=== PATIENT | male | born 1965 | race Caucasian/White ===

== ENCOUNTER 2016-12-13 15:41 | Emergency (ER) | payer BC ==
[2016-12-13] MEDS ORDERED: Morphine 2 MG/ML Syringe IVPUSH ONE (16:22)
[2016-12-13] MEDS ORDERED: Ketorolac 30 MG/ML SDV IVPUSH ONE (16:22)
[2016-12-13] MEDS ORDERED: Ondansetron 4 MG/2 ML SDV IVPUSH ONE (16:22)
--- NOTE | 2016-12-13 16:50 | EDM.PDOC ---
ED HPI LOWER BACK PAIN/INJURY - General Chief Complaint: Flank Pain Stated Complaint: LOWER BACK PAIN Time Seen by Provider: 12/13/16 16:15 Source of Information: Reports: Patient History Limitations: Reports: No limitations - History of Present Illness INITIAL COMMENTS - FREE TEXT/NARRATIVE: HISTORY AND PHYSICAL: History of present illness: [Patient comes to the emergency department complaining of left flank pain. Pain began suddenly at 3 AM this morning and has gradually worsened throughout the day. Denies hematuria, urinary frequency, and burning with urination. No penile discharge. He denies fever and chills. He has had no chest pain, shortness of breath, and difficulty breathing. One episode of vomiting at noon today which he attributes to taking all his medications on an empty stomach. Rates pain at 10 out of 10. Radiation into his left testicle. No right-sided back pain. He took 2 of his 's tramadol earlier today which provided minimal relief of symptoms. Patient notices particles in his urine after leaving UA while in the ER. Patient's primary care provider is in [place] at [facility].] Review of systems: As per history of present illness and below otherwise all systems reviewed and negative. Past medical history: As per history of present illness and as reviewed below otherwise noncontributory. Surgical history: As per history of present illness and as reviewed below otherwise noncontributory. Social history: No reported history of drug or alcohol abuse. Family history: As per history of present illness and as reviewed below otherwise noncontributory. Physical exam: General: Well-developed well-nourished male is in no acute distress, but appears uncomfortable. Rocks back and forth while sitting on exam table. HEENT: Atraumatic, normocephalic. negative for conjunctival pallor or scleral icterus. mucous membranes moist, throat clear. Lungs: Clear to auscultation, breath sounds equal bilaterally, chest nontender. Heart: S1S2, regular rate and rhythm. negative for clicks, rubs, or JVD. Abdomen: Normoactive bowel sounds throughout. Soft, nondistended, nontender. No CVA tenderness bilaterally. Identifies the area of pain as being to his left low back below his waist line. Negative for masses or hepatosplenomegaly. No guarding or rebound. Pelvis: Stable nontender. Genitourinary: Deferred. Rectal: Deferred. Extremities: Atraumatic, is ambulatory without deficit. Neurovascular unremarkable. Neuro: Awake, alert, oriented. Cranial nerves II through XII unremarkable. Motor and sensory unremarkable throughout. Exam nonfocal. Diagnostics: [UA w/ micro, CT abd and pelvis w/o contrast] Therapeutics: [morphine 2mg IV, ketoroloac 30mg IV, zofran 4mg IV] Impression: Ureteral colic Microscopic hematuria ] Plan: [Pain improves following IV medications. Urine is slightly cloudy, positive for nitrites and a small of blood. We'll cover for possible UTI with Macrobid. Colic may be due to a passed kidney stone. Incidental findings found on CT are reviewed with patient of #1 diverticulosis, #2 right renal cyst, #3 umbilical hernia, #4 small left inguinal hernia. He is urged to review this with his PCP. Offered patient hospitalization for continued observation. He declines stating that he is going to be hospitalized he will drive to [place]. He is given Rx's for Hydrocodone 5mg (#10) si po q 6 hours prn pain 0 RF's; ketorolac 10mg (#20) si po q 6 hours 0 RF's, Macrobid #14 one twice a day no refills. Urged close followup with PCP and to return to ER as needed. All of his questions are answered and concerns are addressed.] Definitive disposition and diagnosis as appropriate pending reevaluation and review of above. - Related Data Allergies/ADRs: Allergies Allergy/AdvReac Type Severity Reaction Status Date / Time No Known Allergies Allergy Verified 12/13/16 15:55 Home Meds: Home Meds Empagliflozin [Jardiance] 25 mg PO DAILY 12/13/16 [History] Gabapentin [Neurontin] 300 mg PO TID 12/13/16 [History] Insulin Aspart [Novolog Flexpen] 1 dose SQ ASDIRECTED 12/13/16 [History] Insulin Glarg,Human.Rec.Analog [Lantus] 44 units SQ BEDTIME 12/13/16 [History] Liraglutide [Victoza] 1.8 mg SQ DAILY 12/13/16 [History] Lisinopril [Prinivil] 10 mg PO DAILY 12/13/16 [History] Rosuvastatin Calcium 40 mg PO DAILY 12/13/16 [History] buPROPion HCl [Wellbutrin SR] 150 mg PO BID 12/13/16 [History] Past Medical History - Past Health History Medical/Surgical History: Denies Medical/Surgical History Cardiovascular History: Reports: Hypertension Endocrine/Metabolic History: Reports: Diabetes, type II - Infectious Disease History Infectious Disease History: Reports: Chicken pox, Measles, Mumps Social & Family History - Family History Family Medical History: Noncontributory - Tobacco Use Smoking Status *Q: Current Every Day Smoker Years of Tobacco use: 30 Packs/Tins Daily: 1.5 - Caffeine Use Caffeine Use: Reports: None - Recreational Drug Use Recreational Drug Use: No ED ROS GENERAL - Review of Systems Review Of Systems: ROS reveals no pertinent complaints other than HPI. ED EXAM,LOWER BACK PAIN/INJURY - Physical Exam Exam: See Below Course - Vital Signs Last Recorded V/S: Last Vital Signs Temp 98.7 F 12/13/16 18:22 Pulse 87 12/13/16 18:22 Resp 16 12/13/16 18:22 BP 138/90 12/13/16 18:22 Pulse Ox 94 L 12/13/16 18:22 - Orders/Labs/Meds Orders: Active Orders 24 hr Category Date Time Status Abdomen Pelvis wo Cont [CT] Stat Exams 12/13/16 16:40 Taken Labs: Laboratory Tests 12/13/16 Range/Units 15:57 Urine Color YELLOW Urine Appearance SLT CLOUDY Urine pH 5.0 (5.0-8.0) Ur Specific [place] 1.020 (1.001-1.035) Urine Protein TRACE (NEGATIVE) mg/dL Urine Glucose (UA) >=1000 (NEGATIVE) mg/dL Urine Ketones 15 H (NEGATIVE) mg/dL Urine Occult Blood SMALL H (NEGATIVE) Urine Nitrite POSITIVE H (NEGATIVE) Urine Bilirubin NEGATIVE (NEGATIVE) Urine Urobilinogen 0.2 (<2.0) EU/dL Ur Leukocyte Esterase NEGATIVE (NEGATIVE) Urine RBC 0-2 (0-2/HPF) Urine WBC 8-12 (0-5/HPF) Ur Epithelial Cells RARE (NONE-FEW) Urine Bacteria FEW (NEGATIVE) Meds: Medications Discontinued Medications Generic Name Dose Route Start Last Admin Trade Name Freq PRN Reason Stop Dose Admin Ketorolac Tromethamine 30 mg 12/13/16 16:22 12/13/16 16:32 Toradol IVPUSH 12/13/16 16:23 30 mg ONETIME ONE Administration Morphine Sulfate 2 mg 12/13/16 16:22 12/13/16 16:35 Morphine IVPUSH 12/13/16 16:23 2 mg ONETIME ONE Administration Ondansetron HCl 4 mg 12/13/16 16:22 12/13/16 16:30 Zofran IVPUSH 12/13/16 16:23 4 mg ONETIME ONE Administration Departure - Departure Time of Disposition: 18:20 Disposition: Home, Self-Care 01 Condition: good Clinical Impression: Ureteral colic Instructions: Renal Colic, [id number] Referrals: PCP,None [Primary Care Provider] - Forms: ED Department Discharge Additional Instructions: The following information is given to patients seen in the emergency department who are being discharged to home. This information is to outline your options for follow-up care. We provide all patients seen in our emergency department with a follow-up referral. The need for follow-up, as well as the timing and circumstances, are variable depending upon the specifics of your emergency department visit. If you don't have a primary care physician on staff, we will provide you with a referral. We always advise you to contact your personal physician following an emergency department visit to inform them of the circumstance of the visit and for follow-up with them and/or the need for any referrals to a consulting specialist. The emergency department will also refer you to a specialist when appropriate. This referral assures that you have the opportunity for follow-up care with a specialist. All of these measure are taken in an effort to provide you with optimal care, which includes your follow-up. Under all circumstances we always encourage you to contact your private physician who remains a resource for coordinating your care. When calling for follow-up care, please make the office aware that this follow-up is from your recent emergency room visit. If for any reason you are refused follow-up, please contact the [facility] emergency department at and asked to speak to the emergency department charge nurse. [facility] [address] [place] [id number] Followup with your primary care provider at the clinic listed above in 48-72 hours. Take pain medications as prescribed. Push fluids. Strain urine. Return to ER as needed and as discussed. - My Orders Last 24 Hours: My Active Orders 12/13/16 16:40 Abdomen Pelvis wo Cont [CT] Stat - Assessment/Plan Last 24 Hours: My Active Orders 12/13/16 16:40 Abdomen Pelvis wo Cont [CT] Stat
[2016-12-13 18:38] VITALS: BP 138/90
--- NOTE | 2016-12-14 10:15 | CT ---
EXAM DATE: 12/13/16 PATIENT'S AGE: 51 Patient: FERDINAND KNIGHT Facility: [place], [place] Site . Site : 1965 Study: CT Abdomen/Pelvis [id number] 4:54:57 PM Ordering Physician: Doctor Hung Final Report: INDICATION: Left flank pain. Hematuria. TECHNIQUE: CT abdomen and pelvis without contrast. COMPARISON: None available FINDINGS: Lower chest: Few tiny right basilar pneumatoceles. Small calcified granulomas. Liver: Unremarkable. Spleen: Unremarkable. Pancreas: Unremarkable. Gallbladder and bile ducts: Possible gallbladder sludge. Adrenal glands: Unremarkable. Kidneys: No hydronephrosis or discrete, measurable urolithiasis. A 1.9 centimeter near water attenuation right renal lesion suggestive of a cyst. Slight perirenal stranding, nonspecific. GI tract: A duodenal diverticulum. No mechanical bowel obstruction. A normal appendix. Scattered colonic diverticula without diverticulitis. Vascular structures: Arthrosclerotic changes. Lymph nodes: A borderline portacaval lymph node which could be reactive. Miscellaneous: No free fluid or free air. A small fat containing paraumbilical hernia. Minimal stranding underlying the hernia and a few reticular densities within the herniated fat could represent slight inflammation or may be related to vessels. A small fat containing left inguinal hernia. Pelvic Organs: No discrete bladder calcifications. Few prostatic calcifications. Bones: Degenerative changes in the spine and hips. IMPRESSION: No obstructive uropathy or discrete, measurable urolithiasis. A probable right renal cyst. Consider sonographic correlation. Colonic diverticulosis without diverticulitis. No appendicitis or bowel obstruction. A small fat containing umbilical hernia with possible mild associated inflammation. A small fat containing left inguinal hernia. Dictated by Yasmani Viera MD @ 12/13/2016 5:47:17 PM Dictated by: Yasmani Viera MD @ 12/13/2016 17:47:24 (Electronic Signature) Report Signed by Proxy and Original Signed Document filed in the Medical Record. [facility]
== END 2016-12-13 18:31 | disposition home or self-care (01) ==
LOC: MW.ED 15:41
DX: N23 Unspecified renal colic (principal); R31.29 Other microscopic hematuria; I10 Essential (primary) hypertension; E11.9 Type 2 diabetes mellitus without complications; F17.210 Nicotine dependence, cigarettes, uncomplicated; Z79.4 Long term (current) use of insulin; Z79.899 Other long term (current) drug therapy
CPT/HCPCS: 74176; 81001; 96374; 96375; 99284; J1885; J2270; J2405